=== PATIENT | female | born 1970 | race Caucasian/White ===

== ENCOUNTER → 2017-08-29 15:20 | Outpatient (REF) | payer MEDICAID, SELFPAY ==
[2017-08-29 17:17] LABS: Basophils # 0.1 K/mm3 (0-0.2); Basophils % 0.5 % (0.1-2.0); Eosinophils # 0.2 K/mm3 (0.0-0.4); Eosinophils % 1.8 % (0.1-12.0); Hemoglobin 14.2 g/dL (12.2-16.2); Lymphocytes # 2.8 K/mm3 (0.7-4.5); Lymphocytes % 25.2 K/mm3 (10-50); Mean Corpuscular HGB Conc 31.5 g/dL (31.8-35.4); Mean Corpuscular Hemoglobin 28.4 pg (27.0-31.2); Mean Corpuscular Volume 90.1 fl (81-99); Monocytes # 0.6 K/mm3 (0.1-1.0); Monocytes % 5.3 % (1.7-9.3); Neutrophils # 7.4 K/mm3 (1.8-7.8); Neutrophils % 67.3 % (37.0-80.0); Platelet Count 237 K/mm3 (142-424); Red Cell Distribution Width 12.9 % (11.5-17.5); White Blood Count 10.9 K/mm3 (4.8-10.8)
[2017-08-29 19:35] LABS: Alanine Aminotransferase 34 U/L (12-78); Albumin Level 3.6 gm/dL (3.4-5.0); Albumin/Globulin Ratio 1.1 (1.1-1.8); Alkaline Phosphatase 134 U/L (46-116); Anion Gap 15.4 mEq/L (5-15); Aspartate Amino Transferase 18 U/L (15-37); Bilirubin,Total 0.3 mg/dL (0.2-1.0); Blood Urea Nitrogen 7 mg/dL (7-18); Calcium 9.5 mg/dL (8.5-10.1); Carbon Dioxide 26 mmol/L (21.0-32.0); Chloride 104 mmol/L (98-107); Chol/HDL Ratio 4.1 (1-3.5); Cholesterol 203 mg/dL (140-200); Creatinine,Serum 1.06 mg/dL (0.55-1.02); Estimated Glomerular Filt Rate 56 ml/min (>60); GFR (African American) 67 ML/MIN (>60); Globulin 3.4 gm/dl (1.3-3.2); Glucose 82 mg/dL (74-106); HDL Cholesterol 50 mg/dL (29-89); LDL Cholesterol 114 mg/dL (0-130); Potassium 4.4 mmoL/L (3.5-5.1); Sodium 141 mmol/L (136-145); T4 (Thyroxine) 10.5 ug/dl (4.7-13.3); Triglycerides 195 mg/dL (30-200); VLDL Cholesterol 39 mg/dL (0-40)
[2017-08-31 13:38] LABS: Vitamin D 25 Hydroxy 19.7 ng/mL (30.0-100.0)
== END ==
LOC: LAB 15:20
PROVIDERS: Visit Provider Physician Assistant
DX: F32.9 Major depressive disorder, single episode, unspecified (principal); E55.9 Vitamin D deficiency, unspecified; Z79.899 Other long term (current) drug therapy
CPT/HCPCS: 80053; 80061; 82652; 84436; 84443; 85025

== ENCOUNTER → 2017-09-07 07:46 | Outpatient (CLI) | payer MEDICAID, SELFPAY ==
--- NOTE | 2017-09-07 07:49 | MR_ITS ---
MR shoulder RT wo con COMPARISON: None HISTORY: Right shoulder pain with limited range of motion ORDERING PHYSICIAN: CHINA Felton PATIENT AGE: 46 years COMPARISON: 02/25/2014 and radiograph TECHNIQUE: Routine multiplanar multiecho sequences are performed without contrast. FINDINGS: There is an old right humeral neck fracture with mottled heterogeneous signal intensity of the humeral head. Hypertrophic changes are present at the acromioclavicular joint. The supraspinatus tendon is somewhat thickened with slight increased T2 signal consistent with tendinopathy/tendinosis. There is some linear increased T2 signal involving the distal aspect of the supraspinatus tendon suggesting a partial tear. A complete tear with muscle and tendinous retraction is not identified. The infraspinatus tendon, subscapularis tendon, and teres minor tendons are intact. There is some increased T2 signal of the subscapularis tendon suggesting tendinopathy/tendinosis. On the superior anterior aspect of the glenoid labrum there is increased T2 signal suggesting a SLAP injury. There is an old right humeral neck and head fracture with deformity of the humeral head and hypertrophic changes along the medial and infra aspect of the humeral neck. In addition, there is some subcortical serpiginous decreased T2 signal along the humeral head which may be due to avascular necrosis. Suggest radiograph of the right shoulder for further evaluation. A small shoulder joint effusion. IMPRESSION: 1. Tendinopathy/tendinosis of the supraspinatus tendon with suspected partial tear. 2. Tendinopathy/tendinosis of the subscapularis tendon. 3. Suspect a SLAP injury. 4. 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 Deformity of the humeral head and neck has developed since 02/25/2014. Consider repeat radiograph for further evaluation
== END ==
PROVIDERS: Family Provider Physician Assistant; PCP Physician Assistant; Visit Provider Physician Assistant
DX: S49.91XA Unspecified injury of right shoulder and upper arm, initial encounter (principal)
CPT/HCPCS: 73221

== ENCOUNTER → 2017-09-26 14:24 | Outpatient (CLI) | payer MEDICAID, SELFPAY ==
--- NOTE | 2017-09-26 14:48 | XR_ITS ---
XR shoulder RT min 2V HISTORY: ITS.REASON: grashy, supraspinatus and axillary views! ORDERING PHYSICIAN: Tomer Bar MD PATIENT AGE: 46 years Comparison: 02/25/2014 Grashey, supraspinatus, and axillary views are obtained FINDINGS: There is an old fracture of the humeral head and neck. There is also sclerosis of the articular surface of the humerus with a cortical irregularity involving the humeral head consistent with the old fracture. There is osteosclerosis of the humeral head with subcortical lucencies suggesting avascular necrosis. No evidence of dislocation. IMPRESSION: Old fracture of the humeral head and neck with with remodeling and prominent osteophyte formation. There may be some avascular necrosis of the humeral head
== END ==
PROVIDERS: PCP Physician Assistant; Visit Provider Orthopaedic Surgery
DX: M25.511 Pain in right shoulder (principal)
CPT/HCPCS: 73030

== ENCOUNTER → 2017-10-30 15:18 | Outpatient (CLI) | payer MEDICAID, SELFPAY ==
--- NOTE | 2017-10-30 15:22 | XR_ITS ---
XR knee RT 4V HISTORY: ITS.REASON: Right knee pain ORDERING PHYSICIAN: CHINA Felton PATIENT AGE: 46 years COMPARISON: None FINDINGS: No fracture or dislocation. No lytic or blastic change. Normal mineralization. No significant arthritic changes evident. Increased density is present in the suprapatellar region consistent with knee joint effusion. IMPRESSION: Knee joint effusion otherwise negative
[2017-10-30 16:18] LABS: Hemoglobin A1C 5.9 % (0.0-7.0)
== END ==
PROVIDERS: PCP Physician Assistant; Visit Provider Physician Assistant
DX: M79.671 Pain in right foot (principal); R73.9 Hyperglycemia, unspecified
CPT/HCPCS: 36415; 73564; 83036

== ENCOUNTER → 2017-11-13 14:18 | Outpatient (CLI) | payer MEDICAID, SELFPAY ==
--- NOTE | 2017-11-13 14:19 | MR_ITS ---
MR knee RT wo con HISTORY: Right knee pain medial side with limited range of motion and instability ITS.REASON: right knee pain ORDERING PHYSICIAN: CHINA Felton PATIENT AGE: 46 years Comparison: 10/30/2017 TECHNIQUE: Standard multiplanar multiecho sequences are performed without contrast. FINDINGS: The cruciate ligaments appear intact. Collateral ligaments, quadriceps tendon, and patellar tendon also appear intact. There does appear to be some tendinosis/tendinopathy of the proximal aspect of the patellar tendon. No evidence of meniscal tear. Patellar cartilage is well preserved. There are mild osteoarthritic changes with slight decrease in the joint space medially and laterally. Slight increased T2 signal involves the medial aspect of the medial femoral condyle some mild underlying bone marrow edema. No subarticular cystic changes. There is a moderate to large sized knee joint effusion mainly in the supra patellar region. Mild subcutaneous edema is also noted about the knee. No acute fracture apparent. IMPRESSION: 1. No evidence of internal derangement 2. Moderate to large sized knee joint effusion with subcutaneous edema around the knee. 3. Increased T2 signal involves the medial aspect of the medial femoral condyle. Differential diagnosis would include bone marrow edema from trauma or inflammation versus early avascular necrosis. No osteochondral defects apparent. 4. Mild osteoarthritis
--- NOTE | 2017-11-13 14:19 | US_ITS ---
US spinal canal content CLINICAL INDICATION: Pain ITS.REASON: Bruising lumbar spine ORDERING PHYSICIAN: CHINA Felton PATIENT AGE: 46 years Comparison: None FINDINGS: Ultrasound is performed of the low back in the area of patient's concern. No soft tissue mass or fluid collection evident. There are few subcutaneous vessels in this area. IMPRESSION: 1. No mass or fluid collection in area of concern in the lower back by ultrasound 2. There are a few small blood vessels in the subcutaneous tissues nonspecific
== END ==
PROVIDERS: Family Provider Physician Assistant; PCP Physician Assistant; Visit Provider Physician Assistant
DX: M54.5 Low back pain (principal)
CPT/HCPCS: 73721; 76800

== ENCOUNTER → 2017-12-10 16:36 | Outpatient (CLI) | payer MEDICAID, SELFPAY ==
[2017-12-10 17:29] LABS: Basophils % 0.5 % (0.1-2.0); Eosinophils # 0.2 K/mm3 (0.0-0.4); Eosinophils % 2.2 % (0.1-12.0); Hematocrit 42.9 % (37.0-47.0); Hemoglobin 14.1 g/dL (12.2-16.2); Lymphocytes # 3.2 K/mm3 (0.7-4.5); Lymphocytes % 33.6 K/mm3 (10-50); Mean Corpuscular HGB Conc 32.9 g/dL (31.8-35.4); Mean Corpuscular Hemoglobin 30.3 pg (27.0-31.2); Mean Corpuscular Volume 92.2 fl (81-99); Mean Platelet Volume 8.2 fl (7.4-10.4); Monocytes # 0.5 K/mm3 (0.1-1.0); Monocytes % 4.8 % (1.7-9.3); Neutrophils # 5.6 K/mm3 (1.8-7.8); Neutrophils % 58.9 % (37.0-80.0); Platelet Count 278 K/mm3 (142-424); Red Blood Count 4.65 M/mm3 (4.20-5.40); Red Cell Distribution Width 13.5 % (11.5-17.5); White Blood Count 9.5 K/mm3 (4.8-10.8)
[2017-12-10 19:58] LABS: Alanine Aminotransferase 27 U/L (12-78); Albumin Level 3.6 gm/dL (3.4-5.0); Albumin/Globulin Ratio 1.1 (1.1-1.8); Alkaline Phosphatase 133 U/L (46-116); Anion Gap 8.7 mEq/L (5-15); Aspartate Amino Transferase 13 U/L (15-37); Bilirubin,Total 0.3 mg/dL (0.2-1.0); Blood Urea Nitrogen 6 mg/dL (7-18); Calcium 9.2 mg/dL (8.5-10.1); Carbon Dioxide 32 mmol/L (21.0-32.0); Chloride 105 mmol/L (98-107); Creatinine,Serum 0.91 mg/dL (0.55-1.02); Estimated Glomerular Filt Rate 66 ml/min (>60); GFR (African American) 80 ML/MIN (>60); Globulin 3.4 gm/dl (1.3-3.2); Glucose 81 mg/dL (74-106); Potassium 4.7 mmoL/L (3.5-5.1); Sodium 141 mmol/L (136-145)
== END ==
PROVIDERS: PCP Physician Assistant; Visit Provider Otolaryngology
DX: Z01.818 Encounter for other preprocedural examination (principal); H05.89 Other disorders of orbit; L98.9 Disorder of the skin and subcutaneous tissue, unspecified
CPT/HCPCS: 36415; 80053; 85025

== ENCOUNTER → 2017-12-18 09:17 | Outpatient (CLI) | payer MEDICAID, SELFPAY ==
--- NOTE | 2017-12-18 09:18 | MM_ITS ---
MM Dig screening mamm BI w/CAD ORDERING PHYSICIAN : CHINA Felton PATIENT AGE: 47 years GENDER: Female COMPARISON: March 2015 screening mammogram INDICATION: ITS.REASON: Screening mammogram no hormones no new complaints noncontributory family history TECHNIQUE: Standard CC and MLO images were obtained. R2 CAD reviewed. FINDINGS: Lower density breast with moderate fatty replacement. Mild to moderate residual fibroglandular elements throughout the central portion of breast. IMPRESSION: No no significant new areas of concern. . Overall Stable bilateral mammogram. Bilateral follow-up in one year recommended. BI-RADS Category: 2 Benign Finding(s) RECOMMENDED FOLLOW-UP: 1YR 1 YEAR FOLLOW-UP (A letter has been sent to the patient regarding results of the study.)
== END ==
PROVIDERS: Family Provider Physician Assistant; PCP Physician Assistant; Visit Provider Physician Assistant
DX: Z12.31 Encounter for screening mammogram for malignant neoplasm of breast (principal)
CPT/HCPCS: 77067

== ENCOUNTER → 2018-03-08 14:07 | Outpatient (CLI) | payer MEDICAID, SELFPAY ==
[2018-03-08 17:16] LABS: Amphetamine/Metha Screen,Urine Positive ng/mL (<1000); Barbiturates Screen,Urine Negative ng/mL (<200); Benzodiazepines Screen,Urine Positive ng/mL (<200); Cannabinoid Screen,Urine Positive ng/mL (<50); Cocaine Screen,Urine Negative ng/mL (<300); Methadone Screen,Urine Negative ng/mL (<300); Opiate Screen,Urine Positive ng/mL (<300); Phencyclidine Screen,Urine Negative ng/mL (<25)
[2018-03-17 23:10] LABS: Amphetamine Positive (.); Amphetamines Positive (.); Methamphetamine Positive (.)
[2018-03-18 14:23] LABS: Amphetamine (GC/MS) 570 ng/mL (Cutoff=500); Methamphetamine (GC/MS) 2478 ng/mL (Cutoff=500)
[2018-03-20 01:12] LABS: Alprazolam Negative (Cutoff=100); Benzodiazepines Positive ng/mL (Cutoff=100); Clonazepam Negative (Cutoff=100); Codeine Positive (.); Flurazepam Negative (Cutoff=100); Hydrocodone Positive (.); Hydromorphone Negative (Cutoff=100); Lorazepam Negative (Cutoff=100); Midazolam Negative (Cutoff=100); Morphine Negative (Cutoff=100); Temazepam Positive (.); Triazolam Negative (Cutoff=100)
[2018-03-20 09:34] LABS: Codeine Confirm 131 ng/mL (Cutoff=100); Hydrocodone Confirm 175 ng/mL (Cutoff=100); Opiates Positive (.)
== END ==
PROVIDERS: Physician Assistant; Visit Provider Nurse Practitioner Family
DX: Z79.899 Other long term (current) drug therapy (principal)
CPT/HCPCS: 80305; 80324; 80346; 80361; G0480

== ENCOUNTER 2021-07-06 11:10 | Emergency (ER) | payer MEDICAID, SELFPAY ==
[2021-07-06 11:12] VITALS: BP 135/92; PULSE 103; RESP 16; TEMP 36.8; O2SAT 98; BMI 41.7
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
--- NOTE | 2021-07-06 12:01 | PC.NURSE ---
ED MD at
[2021-07-06 12:06] VITALS: BP 138/84; PULSE 98; RESP 16; O2SAT 98
[2021-07-06 12:18] LABS: Basophils # 0.1 K/mm3 (0-0.2); Basophils % 0.9 % (0.1-2.0); Chloride 101 mmol/L (98-107); Eosinophils # 0.3 K/mm3 (0.0-0.4); Eosinophils % 2.7 % (0.1-12.0); Hematocrit 43.2 % (37.0-47.0); Hemoglobin 14.1 g/dL (12.2-16.2); Lymphocytes # 2.5 K/mm3 (0.7-4.5); Lymphocytes % 19.5 % (10-50); Mean Corpuscular HGB Conc 32.6 g/dL (31.8-35.4); Mean Corpuscular Hemoglobin 32.2 pg (27.0-31.2); Mean Corpuscular Volume 98.8 fl (81-99); Monocytes % 7.6 % (1.7-9.3); Neutrophils # 8.7 K/mm3 (1.8-7.8); Neutrophils % 69.3 % (37.0-80.0); Platelet Count 285 K/mm3 (142-424); Red Blood Count 4.37 M/mm3 (4.20-5.40); Red Cell Distribution Width 13.7 % (11.5-17.5); White Blood Count 12.5 K/mm3 (4.8-10.8)
[2021-07-06 12:19] LABS: Potassium 3.8 mmoL/L (3.5-5.1); Sodium 136 mmol/L (136-145)
[2021-07-06 12:21] LABS: Alanine Aminotransferase 47 U/L (12-78); Alkaline Phosphatase 119 U/L (38-126); Anion Gap 9.8 mEq/L (5-15); Aspartate Amino Transferase 76 U/L (14-36); Blood Urea Nitrogen 28 mg/dl (7-17); Carbon Dioxide 29 mmol/L (22.0-30.0); Creatinine Clearance Estimated 41 mL/min (50-200); Estimated Glomerular Filt Rate 40 ml/min (>60); GFR (African American) 48 ML/MIN (>60)
[2021-07-06 12:22] LABS: Albumin Level 4.4 g/dl (3.5-5.0); Albumin/Globulin Ratio 1.5 (1.1-1.8); Calcium 8.8 mg/dl (8.4-10.2); Globulin 2.9 g/dL (1.3-3.2); Glucose 96 mg/dl (74-100); Total Protein,Serum 7.3 g/dl (6.3-8.2)
--- NOTE | 2021-07-06 12:22 | PC.NURSE ---
Rounded on patient, and encouraged her to try and give us a urine sample, advised she would try again in a few minutes. PT has no new needs at this time.
[2021-07-06 12:29] LABS: Creatine Kinase 2631 U/L (30-135)
[2021-07-06 12:40] VITALS: BP 132/77; PULSE 80; RESP 16; O2SAT 98
--- NOTE | 2021-07-06 14:42 | PC.NURSE ---
Rounded on patient at this time. She had approx. 500-700 ml left of her 2nd bag of fluids. Pt advised she was hungry. Called and requested regular tray for patient.
[2021-07-06 14:44] VITALS: BP 148/82; PULSE 70; RESP 16; O2SAT 98
--- NOTE | 2021-07-06 14:50 | PC.NURSE ---
Pt sitting up on side of bed eating lunch tray.
[2021-07-06 15:33] VITALS: BP 132/78; PULSE 70; RESP 16; TEMP 36.8; O2SAT 98
== END 2021-07-06 15:41 | disposition home or self-care (01) ==
PROVIDERS: Emergency Provider Emergency Medicine; PCP Family Medicine
DX: N17.9 Acute kidney failure, unspecified (principal); M62.82 Rhabdomyolysis; J44.9 Chronic obstructive pulmonary disease, unspecified; K21.9 Gastro-esophageal reflux disease without esophagitis; E03.9 Hypothyroidism, unspecified; F17.210 Nicotine dependence, cigarettes, uncomplicated; Z79.899 Other long term (current) drug therapy; Z88.6 Allergy status to analgesic agent
CPT/HCPCS: 80053; 82550; 85025; 96360; 96361; 99284